=== PATIENT | female | born 1970 | race Caucasian/White ===

== ENCOUNTER 2022-11-28 06:25 | Day surgery (SDC) | payer BC ==
[2022-11-27 12:42] LABS: Specific Gravity 1.012 (1.005-1.030); Urine Bacteria None Seen /HPF (<20); Urine Bilirubin NEGATIVE (Negative); Urine Blood Trace (Negative); Urine Clarity Clear (Clear); Urine Color Light-Yellow (Yellow); Urine Glucose NEGATIVE (Negative); Urine Mucus Slight /HPF (None Seen); Urine Protein NEGATIVE (Negative); Urine Urobilinogen Normal (Normal); Urine pH 7.5 (5.0-7.0)
[2022-11-27 12:47] LABS: Absolute Lymphocytes (CBC) 1.5 K/uL (0.7-4.9); Hematocrit 39.9 % (36.0-45.0); Lymphocytes % 21.2 % (15.3-44.8); MCV 82.2 fL (80-100); Platelets 298 thou/uL (152-406); RBC Red Blood Cell Count 4.86 M/uL (3.86-4.86)
[2022-11-27 13:18] LABS: Anisocytosis 1+; Blood Morphology Comment NOTED (NOT SEEN); Platelet Estimate ADEQ; White Blood Cell Scan OK (OK)
[2022-11-28] MEDS ORDERED: SCOPOLAMINE HYDROBROMIDE PATCH TD ONE (06:48)
[2022-11-28] MEDS ORDERED: Ringers Lactate 1,000 ML IV ONE ×2 (06:48→08:38)
[2022-11-28] MEDS ORDERED: BUPIVACAINE 0.25% PF 30 ML VIAL ONE (07:02)
[2022-11-28] MEDS ORDERED: ROCURONIUM 50 MG/5 ML VIAL IV ONE (07:28)
[2022-11-28] MEDS ORDERED: dexAMETHasone 10 MG/ML VIAL ONE (07:28)
[2022-11-28] MEDS ORDERED: KETAMINE HCL IN 0.9 % NACL 50 MG/5 ML SYRINGE IV ONE (07:28)
[2022-11-28] MEDS ORDERED: FENTANYL CITR 250 MCG/5 ML ONE (07:28)
[2022-11-28] MEDS ORDERED: propofoL 200 MG/20 ML VIAL IV ONE (07:28)
[2022-11-28] MEDS ORDERED: LIDOCAINE 2% MPF 5 ML VIAL ONE (07:28)
[2022-11-28] MEDS ORDERED: MIDAZOLAM HCL 2 MG/2 ML INJ ONE (07:28)
[2022-11-28] MEDS ORDERED: ONDANSETRON 4 MG/2 ML VIAL ONE (07:29)
[2022-11-28] MEDS ORDERED: CEFAZOLIN SODIUM 2 GM/VIAL ONE (07:37)
[2022-11-28] MEDS ORDERED: GLYCOPYRROLATE 0.2 MG/ML SYR ONE (08:23)
[2022-11-28] MEDS ORDERED: KETOROLAC 30 MG/ML INJ ONE (10:00)
[2022-11-28] MEDS ORDERED: Mastisol Adhesive Liq ONE (10:34)
[2022-11-28] MEDS: HYDROMORPHONE HCL 1 MG/ML INJ ONE ×4 (11:01→11:18)
[2022-11-28] MEDS ORDERED: MORPHINE 4 MG/ML SYR ONE (11:33)
[2022-11-28 11:46] VITALS: O2SAT 97
[2022-11-28] MEDS ORDERED: HYDROCODONE/APAP 5/325 MG TAB ONE (12:35)
[2022-11-28 13:03] VITALS: BP 134/59; TEMP 97.7
--- NOTE | 2022-11-28 13:50 | OP ---
Date of Procedure: 11/28/2022 Surgeon: Melania Tierney MD Hazardous Materials Handler: Lianne Quiles. Preoperative Diagnoses: AUB-A/O dysmenorrhea and atypical squamous cell favoring high-grade dysplasi a and colposcopy consistent with the same without a conclusive diagnosis. Atypical cells were seen, both glandular and squamous on Pap. Postoperative Diagnoses: AUB-A/O dysmenorrhea and atypical squamous cell favoring high-grade dysplas ia and colposcopy consistent with the same without a conclusive diagnosis. Atypical cells were seen, both glandular and squamous on Pap, endometriosis. Procedures Performed: 1.Total laparoscopic hysterectomy. 2.Bilateral salpingo-oophorectomy. 3.Endometriosis excision. 4.Cystoscopy. Anesthesia: General endotracheal. Estimated Blood Loss: 50. Urine Output: 800. Fluids: 1700. Specimens: Uterus, bilateral tubes, and ovaries. Endometriosis included with the peritoneum of the mesosalpinges and the uterus, possible left ovarian cyst, endometrioma. Findings: Endometriosis on the right lateral wall, posterior broad ligament and then at the left [place] rosacral ligament with distal portion as well as on the left sidewall. The bladder had adhesions in the anterior vaginal vault and into the uterus. The cystoscopy at the end showed patent both ureteri c orifices. Indications: The patient is a 52-year-old with abnormal heavy bleeding, dysmenorrhea. Had ultrasoun d and endometrial sampling, did not show any significant atypia or malignancy. The D and C showed sq uamous and glandular atypia, which likely is secondary to her abnormal Pap smear, which was followed by a colposcopy and biopsies, which showed cells favoring high-grade neoplasia, but no confirmation o f HERNANDO-3. The patient was offered the options of having a cold knife cone first or cold knife cone alone and ob servation for other problems, medical treatment for bleeding and pain, or a hysterectomy that would r emove the cervix as well as the uterus, tubes, and ovaries and possible endometriosis excision. If t here is endometrial cancer, then she would be referred to a DISASTER RECOVERY COORDINATOR oncologist. She understood this and was consented. Procedure In Detail: She was brought to the OR in the preoperative area after consenting. 2 g of antibiotics were given. SCDs were started. The patient was placed in a supine fashion on the operating table. General anesthesia was given. She was prepped with Betadine and the vulva, vagina , and perineum and abdomen with ChloraPrep. Arms were tucked by the side. She was placed in a dorsa l lithotomy position using Asim stirrups. After time-out was done, speculum was placed to expose the cervix. The anterior lip was grasped with 2 Allis clamps. Cervix dilated to 16-Dominican and a uterine manipulator was introduced, into place an d the cup fixed in place, even the large cup was somewhat smaller as the cervical size appeared to be significant, but this was fitted against the cervix snuggly. A Yung was placed to drain the bladde r and this area was draped. After infraumbilical incision was made, the umbilical hernia that we discussed was above the level of this incision and so the hernia was not entered. The fascia was incised and 2 sutures were placed o n either ends with 0 Vicryl. Peritoneum entered bluntly after Celeste was introduced. Site of entry was checked after adequate insufflation. The patient was placed in Trendelenburg. Two lateral 5 ports, one 10 suprapubic port were all placed and once she was in Trendelenburg, significantly the bowel was retracted superiorly and procedure st arted. The sigmoid colon and the left lower quadrant adhesions were taken down with the help of sharp dissec tion and scissors. The mesosalpingeal adhesions were taken down from the lateral wall and from the s uperior aspect of the round ligament all the way parallel to the IP. Dissection was performed to sep arate the tube and isolate the infundibulopelvic ligament. Then on the medial side after observing t he location of the ureter, the IP ligament was taken down with the help of the LigaSure and the rest of the peritoneum towards the pelvis was also incised. Then, there was bleeding at the IP ligament p edicle. This was picked up with a grasper and cauterized appropriately at the base with bipolar vess el sealer. The round ligament was isolated and cauterized and cut. Then, anterior peritoneum was opened to get to the bladder flap. The broad ligament was dissected carefully and the vessels were skeletonized. The left paravesical space was entered and the bladder was cleared from the anterior vaginal wall her e. On the right side, the mesosalpinx was opened superior to the round ligament and anterior broad ligam ent opened inferior to the round ligament. Then, the dissection carried to the IP ligament on the an terior leaf of the mesosalpinx. Then, posterior peritoneum was opened up parallel to the IP after vi sualizing the location of the ureter. Then, the IP ligament was isolated and cauterized and cut with the vessel sealer. The round ligament was also cauterized and cut. Then, posterior peritoneum was taken down to the uterosacral. The ureter was dissected laterally. Anteriorly the broad ligament th e incision was taken down to complete the bladder flap. The bladder had to be dissected sharply and bluntly and once this was dissected all the way down the anterior vaginal wall past the cup, the vess els were isolated on the right side after skeletonizing and taking the broad ligament down. Then, th e peritoneal incision in the posterior aspect was created from uterosacral to uterosacral with bipola r and scissors. Anteriorly, the colpotomy was started with a monopolar hook blade as bladder dissected further inferi larry in the vesicovaginal space. Once I reached the vessels here, they were taken down with the help of the bipolar and the LigaSure on the right side. Then, cardinal ligaments were cauterized and cut , some with the LigaSure and some with the bipolar and monopolar hook blade. Then, on the opposite s yenny, dissection was performed to open up the lateral aspect of the cup. Bladder dissected inferiorly . Vessels were isolated. They were cauterized with the bipolar and then later with the LigaSure and cauterized and cut. A clip was placed on the left uterine artery for safety. It was hemostatic by that time with the vessel sealer. The cardinal ligaments were cauterized and cut as I went down and monopolar hook blade was used to pe rform a circumferential colpotomy. The specimen pulled out through the vagina without any problems. After thorough irrigation and suction was performed in the pelvis, the closure was done with 2 simple 0 Vicryl sutures at both ends and 3 [id number] in the middle. There was another extra two 0 P DS in the right center, single stitch placed to completely appose the vaginal wall. They were both t hick on either side. Careful attention was paid to taking the entire thickness without staying too c lose to the edge that was cauterized so that there could be good healing. There was excellent apposition support. Uterosacrals were tacked back to the vaginal apex. Both ure ters had no evidence of electrical, mechanical, or thermal injury to them. Endometriosis Excision: Endometriosis from the right broad ligament was opened up as posterior disse ction was performed and included in the specimen. The distal uterosacral left endometriosis was also excised and included with the specimen as I passed through the lateral wall and the ureter was disse cted separate from it and this area on the lateral border was also cauterized just for ablation of an y peripheral endometriotic tissue and all these were included with the uterine specimen. The trocars were removed under direct vision. Gas was desufflated after thorough irrigation and suct ion. The fascia at the umbilicus closed with 0 Vicryl sutures, tied to each other and simple 0 Vicry l stitch in the suprapubic site. All skin incisions closed with 5-0 Monocryl. Vaginal occluder and Yung were removed. Cystoscopy was performed with a 17-Dominican sheath, 30-degree lens, normal saline. There were excellent jets of urine from both ureteric orifices. No evidence o f any trauma or foreign body in the bladder. The bladder was drained. She was recovered from anesth esia and taken to PACU in stable condition. EBL 50 as dictated and the patient's was debrief ed on her procedure findings briefly and he has a 1-week followup appointment. KATHY/LEIGH Voice ID: [id number] Report ID: [id number]
== END 2022-11-28 13:45 | disposition home or self-care (01) ==
LOC: OR 06:25
PROVIDERS: ATTEND Obstetrics & Gynecology
PROC: 0UT24ZZ Resection of Bilateral Ovaries, Percutaneous Endoscopic Approach (ICD-10-PCS; 2022-11-28)
PROC: 0UT74ZZ Resection of Bilateral Fallopian Tubes, Percutaneous Endoscopic Approach (ICD-10-PCS; 2022-11-28)
PROC: 0UB44ZZ Excision of Uterine Supporting Structure, Percutaneous Endoscopic Approach (ICD-10-PCS; 2022-11-28)
PROC: 0WBF4ZZ Excision of Abdominal Wall, Percutaneous Endoscopic Approach (ICD-10-PCS; 2022-11-28)
PROC: 0UT94ZZ Resection of Uterus, Percutaneous Endoscopic Approach (ICD-10-PCS; principal; 2022-11-28 07:30)
DX: N93.9 Abnormal uterine and vaginal bleeding, unspecified (principal); N92.0 Excessive and frequent menstruation with regular cycle; N94.6 Dysmenorrhea, unspecified; R87.619 Unspecified abnormal cytological findings in specimens from cervix uteri; N80.3C3 Endometriosis of bilateral uterosacral ligament(s), unspecified depth; N80.3C2 Endometriosis of the left uterosacral ligament, unspecified depth; N80.C19 Endometriosis of the anterior abdominal wall, unspecified depth; D06.7 Carcinoma in situ of other parts of cervix; D25.9 Leiomyoma of uterus, unspecified; N83.202 Unspecified ovarian cyst, left side; N83.201 Unspecified ovarian cyst, right side; N83.8 Other noninflammatory disorders of ovary, fallopian tube and broad ligament
CPT/HCPCS: 58571; 58662; 85025; 81001; 36415; 86900; 86850; 81025; 86901; 88309; J2704; J2001; J2250; J3010; J1100; J1170 ×2; J2405; J7120 ×2; 88307

== ENCOUNTER 2025-02-23 00:57 | Emergency (ER) | payer BC ==
[2025-02-23] MEDS ORDERED: MORPHINE 2 MG/ML SYR ONE ×2 (01:25→01:26)
[2025-02-23] MEDS ORDERED: ONDANSETRON 4 MG/2 ML VIAL ONE (01:25)
[2025-02-23] MEDS ORDERED: NA CHLORIDE 0.9% 1,000 ML ONE (01:25)
[2025-02-23 01:34] LABS: Sqamous Epithelial <5 /HPF (None Seen); Urine Culture Reflex Order NOT NEEDED; Urine Microscopic Reflex YN ORDER UMIC
[2025-02-23 01:35] LABS: Absolute Lymphocytes (CBC) 2.0 K/uL (0.7-4.9); Hematocrit 42.4 % (36.0-45.0); Hemoglobin 14.4 g/dL (12.0-15.0); MCH 29.0 pg (27.0-35.0); MCHC 34.0 g/dL (32.0-36.0); MCV 85.2 fL (80-100); MPV 9.4 fL (7.6-11.3); Nucleated RBC Absolute Count 0.0 (0-0); Nucleated Red Blood Cells % 0.1 % (0-0); RBC Red Blood Cell Count 4.98 M/uL (3.86-4.86); White Blood Count 6.80 thou/uL (4.3-10.9)
[2025-02-23 01:48] LABS: ALT/SGPT 42.0 U/L (13-56); AST/SGOT 15.0 U/L (15-37); Albumin 3.8 g/dL (3.4-5.0); Albumin/Globulin Ratio 1.2 (1.1-1.8); Alkaline Phosphatase 120.0 U/L (45-117); Anion Gap 8.9 mEq/L (5.0-15.0); BUN Blood Urea Nitrogen 13.0 mg/dL (7-18); Globulin 3.3 g/dL (2.3-3.5); Glucose Level 140.0 mg/dL (74-106); Lipase 38.0 U/L (13-75); Potassium 3.9 mEq/L (3.5-5.1)
[2025-02-23] MEDS ORDERED: FENTANYL CITR 100 MCG/2 ML ONE (04:13)
[2025-02-23] MEDS ORDERED: METOCLOPRAMIDE 10 MG/2mL INJ ONE (04:13)
[2025-02-23] MEDS ORDERED: HYDROCODONE/APAP 10/325 TAB ONE (05:17)
--- NOTE | 2025-02-23 05:24 | ER ---
Nurse's Notes [facility] Name: Cely Ortega Age: 54 yrs Sex: Female : 1970 Arrival Date: 02/23/2025 Time: 00:57 Bed 15 Private MD: Diagnosis: Acute sigmoid diverticulitis Presentation: 02/23 01:00 Chief complaint: Patient states: right lower quadrant abdominal pain that started km10 tonight. 01:00 Coronavirus screen: Vaccine status: Patient reports being unvaccinated. At this time, km10 the client does not indicate any symptoms associated with coronavirus-19. Ebola Screen: No symptoms or risks identified at this time. Initial Sepsis Screen: Does the patient meet any 2 criteria? No. Patient's initial sepsis screen is negative. Does the patient have a suspected source of infection? No. Patient's initial sepsis screen is negative. Risk Assessment: Do you want to hurt yourself or someone else? Patient reports no desire to harm self or others. Onset of symptoms was February 23, 2025. Care prior to arrival: None. 01:00 Method Of Arrival: Ambulatory km10 01:00 Acuity: OLYA 3 km10 Triage Assessment: 01:33 General: Appears uncomfortable, Behavior is calm, cooperative, appropriate for age. km10 Pain: Complains of pain in right lower quadrant Pain does not radiate. Pain currently is 8 out of 10 on a pain scale. Quality of pain is described as dull, Pain began suddenly, 1 hour ago. Noted to be guarding. 01:35 Neuro: Level of Consciousness is awake, alert, Oriented to person, place, time, km10 situation, Gait is steady. Respiratory: Airway is patent Respiratory effort is even, unlabored, Respiratory pattern is regular, symmetrical. GI: Reports lower abdominal pain. Historical: - Allergies: 01:06 No Known Allergies; kb - Home Meds: 01:06 lisinopril 10 mg oral tablet [Active]; pantoprazole 40 mg oral tablet, delayed release kb (enteric coated) [Active]; Effexor Oral 75 mg [Active]; rizatriptan 10 mg oral tablet [Active]; - PMHx: 01:06 Diverticulitis; GERD; Hypertension; Kidney stones; kb - PSHx: 01:06 section; hysterectomy; kb - Immunization history:: Adult Immunizations unknown. - Infectious Disease History:: Denies. - Social history:: Smoking status: Patient denies any tobacco usage or history of. Screenin:34 [facility] ED Fall Risk Assessment (Adult) History of falling in the last 3 months, km10 including since admission No falls in past 3 months (0 pts) Confusion or Disorientation No (0 pts) Intoxicated or Sedated No (0 pts) Impaired Gait No (0 pts) Mobility Assist Device Used No (0 pt) Altered Elimination No (0 pt) Score/Fall Risk Level 0 - 2 = Low Risk Oriented to surroundings, Maintained a safe environment, Educated pt \T\ family on fall prevention, incl call for assistance when getting out of bed, Assessed \T\ reinforced patient's understanding of fall precautions. Abuse screen: Denies threats or abuse. Denies injuries from another. Nutritional screening: No deficits noted. Tuberculosis screening: No symptoms or risk factors identified. Assessment: 01:35 Reassessment: see triage. km10 03:55 Reassessment: Patient appears in no apparent distress at this time. No changes from km10 previously documented assessment. Patient and/or family updated on plan of care and expected duration. Pain level reassessed. Patient is alert, oriented x 3, equal unlabored respirations, skin warm/dry/pink. 04:15 Reassessment: pt states pain is coming back and unable to sleep, provider notified. km10 Pain:. Vital Signs: 01:00 BP 156 / 88; Pulse 60; Resp 16; Temp 97.9(O); Pulse Ox 99% ; Weight 94.35 kg; Height 5 km10 ft. 10 in. (R); 04:15 BP 153 / 71; Pulse 64; Resp 15; Pulse Ox 97% on R/A; km10 05:21 BP 137 / 81; Pulse 65; Resp 14; Pulse Ox 98% on R/A; km10 01:00 Body Mass Index 29.84 (94.35 kg, 177.8 cm) km10 [place] Score: 05:21 Eye Response: spontaneous(4). Verbal Response: oriented(5). Motor Response: obeys km10 commands(6). Total: 15. ED Course: 01:00 Patient arrived in ED. gm2 01:01 Tanisha Sky FNP-C is PHCP. kb 01:01 Viraj Luong MD is Attending Physician. kb 01:08 Marin Rosa Jr, RN is Primary Nurse. nh2 01:10 No provider procedures requiring assistance completed. Inserted saline lock: 20 gauge km10 in right antecubital area, using aseptic technique. Blood collected. Flushed with 10 mL NS. 01:33 Triage completed. km10 01:34 Arm band placed on right wrist. km10 01:35 Patient has correct armband on for positive identification. Provided Education on: plan km10 of care. 01:35 Client placed on continuous cardiac and pulse oximetry monitoring. NIBP monitoring km10 applied. 03:06 CT Abd/Pelvis - IV Contrast Only In Process Unspecified. EDMS 05:22 Rush Brink MD is Referral Physician. sp4 05:25 IV discontinued, intact, bleeding controlled, No redness/swelling at site. Pressure km10 dressing applied. Administered Medications: 01:35 Drug: NS 0.9% IV 1000 ml IV at 1000 ml once; to be given as a bolus over 60 minutes km10 Route: IV; Rate: 1000 ml; Site: right antecubital; 03:42 Follow up: Response: No adverse reaction; IV Status: Completed infusion km10 01:35 Drug: Ondansetron IVP 4 mg IVP once; over 2 minutes Route: IVP; Site: right antecubital;km10 03:42 Follow up: Response: No adverse reaction km10 01:35 Drug: morphine IVP or IV 4 mg IVP once over 4 mins Route: IVP; Infused Over: 4 mins; km10 Site: right antecubital; 03:43 Follow up: Response: No adverse reaction km10 04:25 Drug: fentaNYL (PF) IVP 100 mcg IVP once Route: IVP; Site: left antecubital; km10 05:15 Follow up: Response: No adverse reaction km10 04:25 Drug: metoCLOPramide IVP 10 mg IVP once; over 1 to 2 minutes Route: IVP; Site: left km10 antecubital; 05:15 Follow up: Response: No adverse reaction km10 05:40 Drug: [place] PO 10 mg-325 mg 1 tabs PO once Route: PO; km10 05:40 Follow up: Response: No adverse reaction km10 05:40 Drug: Cephalexin PO 500 mg PO once Route: PO; km10 05:41 Follow up: Response: No adverse reaction km10 05:40 Drug: metroNIDAZOLE PO 500 mg PO once Route: PO; km10 05:41 Follow up: Response: No adverse reaction km10 Medication: 05:42 VIS not applicable for this client. km10 Outcome: 05:23 Discharge ordered by . sp4 05:41 Discharged to home ambulatory, with family, km10 05:41 Condition: stable 05:41 Discharge instructions given to patient, family, Instructed on discharge instructions, follow up and referral plans. no drinking with medication, medication usage, Demonstrated understanding of instructions, follow-up care, medications, Prescriptions given X 5 05:42 Patient left the ED. km10 Signatures: Dispatcher [employer] EDMS Tanisha Sky, KEN OROPEZA-Viraj Jean Baptiste MD MD sp4 Samara Dhaliwal Jr, Noel, RN RN nh2 Tatiana Dyer RN RN km10
--- NOTE | 2025-02-23 05:24 | EDPHYS ---
Physician Documentation [facility] Name: Cely Ortega Age: 54 yrs Sex: Female : 1970 Arrival Date: 02/23/2025 Time: 00:57 Bed 15 Private MD: ED Physician Viraj Luong HPI: 02/23 01:03 This 54 yrs old Female presents to ER via Unassigned with complaints of Rt side abd kb pain. 01:03 Pt is a 54 year old female who presents for RLQ pain that started at 1830. States the kb pain has gotten worse. Denies fever, n/v/d. . Historical: - Allergies: 01:06 No Known Allergies; kb - Home Meds: 01:06 lisinopril 10 mg oral tablet [Active]; pantoprazole 40 mg oral tablet, delayed release kb (enteric coated) [Active]; Effexor Oral 75 mg [Active]; rizatriptan 10 mg oral tablet [Active]; - PMHx: 01:06 Diverticulitis; GERD; Hypertension; Kidney stones; kb - PSHx: 01:06 section; hysterectomy; kb - Immunization history:: Adult Immunizations unknown. - Infectious Disease History:: Denies. - Social history:: Smoking status: Patient denies any tobacco usage or history of. ROS: 01:04 Constitutional: As per HPI kb Exam: 01:04 Constitutional: This is a well developed, well nourished patient who is awake, alert, kb and in no acute distress. Head/Face: Normocephalic, atraumatic. ENT: Moist Mucous membranes Cardiovascular: Regular rate Respiratory: Respirations even and unlabored. No increased work of breathing. Talking in full sentences Skin: Warm, dry with normal turgor. Normal color. MS/ Extremity: Pulses equal, no cyanosis. Neurovascular intact. Full, normal range of motion. Neuro: Awake and alert, GCS 15, oriented to person, place, time, and situation. 01:05 Abdomen/GI: Inspection: abdomen appears normal, Bowel sounds: normal, Palpation: soft, kb in all quadrants, mild abdominal tenderness, in the right lower quadrant, 23:01 Constitutional: This is a well developed, well nourished patient who is awake, alert, sp4 and in no acute distress. Head/Face: Normocephalic, atraumatic. Eyes: Pupils equal round and reactive to light, extra-ocular motions intact. Lids and lashes normal. Conjunctiva and sclera are not injected. Cornea within normal limits. Periorbital areas with no swelling, redness, or edema. ENT: Nares patent. No nasal discharge, no septal abnormalities noted. Tympanic membranes are normal and external auditory canals are clear. Oropharynx with no redness, swelling, or masses, exudates, or evidence of obstruction, uvula midline. Mucous membranes moist. Neck: Trachea midline, no thyromegaly or masses palpated, and no cervical lymphadenopathy. Supple, full range of motion without nuchal rigidity, or vertebral point tenderness. Chest/axilla: Normal chest wall appearance and motion. Nontender with no deformity. No lesions are appreciated. Cardiovascular: Regular rate and rhythm with a normal S1 and S2. No gallops, murmurs, or rubs. No pulse deficits. Respiratory: Lungs have equal breath sounds bilaterally, clear to auscultation and percussion. No rales, rhonchi or wheezes noted. No increased work of breathing, no retractions or nasal flaring. Abdomen/GI: Soft, with normal bowel sounds. No distension or tympany. No guarding or rebound. No evidence of tenderness throughout. Back: No spinal tenderness. No costovertebral tenderness. Skin: Warm, dry with normal turgor. Normal color with no rashes, no lesions, and no evidence of cellulitis. MS/ Extremity: Pulses equal, no cyanosis. Neurovascular intact. Full, normal range of motion. Neuro: Awake and alert, GCS 15, oriented to person, place, time, and situation. Cranial nerves II-XII grossly intact. Motor strength 5/5 in all extremities. Sensory grossly intact. Vital Signs: 01:00 BP 156 / 88; Pulse 60; Resp 16; Temp 97.9(O); Pulse Ox 99% ; Weight 94.35 kg; Height 5 km10 ft. 10 in. (R); 04:15 BP 153 / 71; Pulse 64; Resp 15; Pulse Ox 97% on R/A; km10 05:21 BP 137 / 81; Pulse 65; Resp 14; Pulse Ox 98% on R/A; km10 01:00 Body Mass Index 29.84 (94.35 kg, 177.8 cm) km10 [place] Com[place] Score: 05:21 Eye Response: spontaneous(4). Verbal Response: oriented(5). Motor Response: obeys km10 commands(6). Total: 15. MDM: 01:01 Medical Screening Exam initiated kb 01:05 Data reviewed: vital signs, nurses notes. kb 05:21 Differential diagnosis: appendicitis, bowel obstruction, Endometriosis, gastritis, sp4 Hepatitis, pancreatitis. Consideration of Admission/Observation Escalation of care including admission/observation considered. ED course: CT reveals mild sigmoid colonic wall thickening nonspecific but concerning for early uncomplicated diverticulitis in the setting of colonic diverticular disease. Patient stable for discharge home with cephalexin and Flagyl. I will refer to a general surgeon Dr. Brink for follow up . 23:01 ED course: CT excluded acute appendicitis but revealed mild diverticulitis. Stable for sp4 discharge home with p.o. course of cephalexin and Flagyl.. 02/23 01:02 Order name: CBC with Diff; Complete Time: 01:55 kb 02/23 01:02 Order name: CMP; Complete Time: 01:55 kb 02/23 01:02 Order name: Lipase; Complete Time: 01:55 kb 02/23 01:02 Order name: UA Rfx Jayson Cult if indicated; Complete Time: 01:55 kb 02/23 01:04 Order name: CT Abd/Pelvis - IV Contrast Only kb 02/23 01:02 Order name: IV Saline Lock; Complete Time: 01:35 kb 02/23 01:02 Order name: Labs collected and sent; Complete Time: 01:35 kb Administered Medications: 01:35 Drug: NS 0.9% IV 1000 ml IV at 1000 ml once; to be given as a bolus over 60 minutes 10 Route: IV; Rate: 1000 ml; Site: right antecubital; 03:42 Follow up: Response: No adverse reaction; IV Status: Completed infusion 01:35 Drug: Ondansetron IVP 4 mg IVP once; over 2 minutes Route: IVP; Site: right antecubital;km10 03:42 Follow up: Response: No adverse reaction 10 01:35 Drug: morphine IVP or IV 4 mg IVP once over 4 mins Route: IVP; Infused Over: 4 mins; km10 Site: right antecubital; 03:43 Follow up: Response: No adverse reaction km10 04:25 Drug: fentaNYL (PF) IVP 100 mcg IVP once Route: IVP; Site: left antecubital; km10 05:15 Follow up: Response: No adverse reaction 10 04:25 Drug: metoCLOPramide IVP 10 mg IVP once; over 1 to 2 minutes Route: IVP; Site: left km10 antecubital; 05:15 Follow up: Response: No adverse reaction 10 05:40 Drug: [place] PO 10 mg-325 mg 1 tabs PO once Route: PO; 10 05:40 Follow up: Response: No adverse reaction 10 05:40 Drug: Cephalexin PO 500 mg PO once Route: PO; 10 :41 Follow up: Response: No adverse reaction 10 :40 Drug: metroNIDAZOLE PO 500 mg PO once Route: PO; :41 Follow up: Response: No adverse reaction Disposition: 05:20 Co-signature as Attending Physician, Viraj Luong MD I agree with the assessment sp4 and plan of care. I reviewed the patient's care provided by Advanced Practice Provider \T\ agree w/ the diagnosis \T\ care plan. I personally saw the pt \T\ performed a substantive portion of the visit, incldng all aspects of the (History/Exam/Medical Decision Making). Disposition Summary: 02/23/25 05:23 Discharge Ordered Notes: Location: Home sp4 Problem: new sp4 Symptoms: have improved sp4 Condition: Stable sp4 Diagnosis - Acute sigmoid diverticulitis sp4 Followup: sp4 - With: Rush Brink MD - When: 7 - 10 days - Reason: Recheck today's complaints Discharge Instructions: - Discharge Summary Sheet sp4 - Diverticulitis, [id number] sp4 Forms: - Patient Portal Instructions sp4 Prescriptions: - meloxicam 15 mg Oral tablet - take 1 tablet ORAL route daily PRN pain; 30 tablet; Refills: 0, Product sp4 Selection Permitted - Cephalexin 500 mg Oral Capsule - take 1 capsule ORAL route every 12 hours for 10 days; 20 capsule; Refills: 0, sp4 Product Selection Permitted - Flagyl 500 mg Oral Tablet - take 1 tablet ORAL route every 8 hours for 10 days; 30 tablet; Refills: 0, sp4 Product Selection Permitted - Tramadol 50 mg Oral Tablet - take 1 tablet ORAL route every 8 hours as needed; 12 tablet; Refills: 0, sp4 Product Selection Permitted - ondansetron 8 mg Oral Tablet,disintegrating - take 1 tablet ORAL route every 8 hours PRN nausea; 30 tablet; Refills: 0, sp4 Product Selection Permitted Signatures: Dispatcher [employer] EDMS Tanisha Sky, Viraj Hood MD MD sp4 Tatiana Dyer RN RN km10 Corrections: (The following items were deleted from the chart) 01:05 01:05 Abdomen Pelvis W Con+CT.RAD.BRZ ordered. EDSC EDMS
[2025-02-23] MEDS ORDERED: CEPHALEXIN 250 MG CAP ONE (05:28)
--- NOTE | 2025-02-23 06:06 | RAD REPORT ---
EXAM: CT Abdomen and Pelvis With Intravenous Contrast (79177, [id number]) CLINICAL HISTORY: 54 years Female abd pain. TECHNIQUE: Axial computed tomography images of the abdomen and pelvis with intravenous contrast. Sagittal and coronal reformatted images were created and reviewed. This CT exam was performed using one or more of the following dose reduction techniques: automated exposure control, adjustment of the mA a nd/or kV according to patient size, and/or use of iterative reconstruction technique. COMPARISON: 11/15/2024. FINDINGS: Lung bases: Normal. No mass. No consolidation. Liver: Normal. No mass. Gallbladder and bile ducts: Normal. No calcified stones. No ductal dilation. Pancreas: Normal. No mass. No ductal dilation. Spleen: Normal. No splenomegaly. Adrenals: Normal. No mass. Kidneys and ureters: Bilateral nonobstructing renal calculi. Stomach and bowel: The stomach and small bowel are normal. The large bowel is normal in caliber. Co lonic diverticulosis. No obstruction. No mucosal thickening. Mild sigmoid colonic wall thickening. Appendix: Normal. Bladder: Normal. No mass. Reproductive: Status post hysterectomy. Intraperitoneal space: Normal. No free air. No fluid collection. Bones/joints: No acute fracture. No dislocation. No destructive bony process. Soft tissues: Fat-containing umbilical hernia defect. Vasculature: Aortoiliac atherosclerosis. No abdominal aortic aneurysm. Lymph nodes: Normal. No lymphadenopathy. IMPRESSION: 1. Mild sigmoid colonic wall thickening, nonspecific but concerning for early uncomplicated diverti culitis in the setting of colonic diverticular disease. 2. Bilateral nonobstructing renal calculi. Electronically signed by: Bryan Souza MD 02/23/2025 04:18 AM T Due to temporary technical issues with the [employer] reporting system, reports are being master d by the in-house radiologist without review as a courtesy to ensure prompt reporting the interpreting radiologist is fully responsible for the content of the report. Transcribed Date/Time: 02/23/2025 6:06 AM
[2025-02-23 07:53] VITALS: TEMP 97.9
[2025-02-23 07:56] VITALS: BP 137/81; O2SAT 98
== END 2025-02-23 05:42 | disposition home or self-care (01) ==
LOC: ER 00:57
DX: K57.32 Diverticulitis of large intestine without perforation or abscess without bleeding (principal)
CPT/HCPCS: 85025; 81001; 36415; 83690; 80053; 74177; 99284; Q9967; J2765; J3010; J2270 ×2; J2405; J7030